=== PATIENT | female | born 2000 | race Caucasian/White ===

== ENCOUNTER 2023-11-03 06:37 | Emergency (ER) | payer BC ==
[~2023-11-03] VITALS: Ht 167.6 cm; Wt 63.6 kg
[~2023-11-03 06:37] MED LIST: ZITHROMAX Z PA250 MG PO
[2023-11-03] MEDS ORDERED: TAMIFLU 75MG75 MG PO (07:43)
[2023-11-03 07:52] VITALS: BP 102/65; PULSE 90; TEMP 98
== END 2023-11-03 07:59 | disposition home or self-care (01) ==
LOC: COL.ER 06:37
DX: O99.512 Diseases of the respiratory system complicating pregnancy, second trimester (principal); O99.332 Smoking (tobacco) complicating pregnancy, second trimester; J10.1 Influenza due to other identified influenza virus with other respiratory manifestations; F17.290 Nicotine dependence, other tobacco product, uncomplicated; Z3A.20 20 weeks gestation of pregnancy